=== PATIENT | male | born 1940 | race Caucasian/White ===

== ENCOUNTER 2021-09-21 16:35 | Inpatient (IN) | payer MEDICARE, OTHER ==
[~2021-09-21 16:35] MED LIST: Iopamidol 370 76% 100 ML VIAL ONE
[2021-09-21 17:32] LABS: #Eosinphils 0.4 thou/uL (0.0-0.7); #Lymphocytes 2.8 thou/uL (1.20-3.40); #Monocytes 0.7 thou/uL (0.11-0.59); #Neutrophils 4.7 thou/uL (1.40-6.50); %Basophils 0.5 % (0.0-1.0); %Eosinophils 4.7 % (0.0-10.0); %Lymphocytes 32.5 % (21.0-51.0); %Monocytes 8.4 % (0.0-10.0); %Neutrophils 53.8 % (42.0-75.0); Hemoglobin 13.4 g/dL (14.0-18.0); Mean Corpuscular HGB CONC 33.3 g/dL (32.0-36.0); Mean Corpuscular Hemoglobin 32.5 pg (27.0-31.0); Mean Corpuscular Volume 97.5 fL (78.0-98.0); Mean Platelet Volume 9.9 fL (7.4-10.4); Platelet Count 135 thou/uL (130-400); RBC Distribution Width 11.3 % (11.5-14.5); Red Blood Cell (RBC) Count 4.13 mill/uL (4.70-6.10); White Blood Cell (WBC) Count 8.6 thou/uL (4.8-10.8)
[2021-09-21 17:55] LABS: ALT (SGPT) 10 U/L (8-55); AST (SGOT) 14 U/L (5-34); Albumin 3.6 g/dL (3.4-4.8); Alkaline Phosphatase 174 U/L (40-110); Anion Gap 13 mmol/L (10-20); BUN (Urea Nitrogen) 16 mg/dL (8.4-25.7); Bilirubin, Total 0.6 mg/dL (0.2-1.2); Calc. Creatinine Clearance 0 mL/min (70-130); Calcium 9.5 mg/dL (7.8-10.44); Carbon Dioxide 27 mmol/L (23-31); Chloride 106 mmol/L (98-107); Estimated GFR 73; Globulin 3.6 g/dL (2.4-3.5); Glucose 185 mg/dL (83-110); Potassium 5.2 mmol/L (3.5-5.1); Protein, Total 7.2 g/dL (5.8-8.1); Sodium 141 mmol/L (136-145)
[2021-09-21 18:51] LABS: Bilirubin Negative (Negative); Blood, Urine Large (Negative); Glucose, Urine (Dipstick) 100 mg/dL (Negative); Ketone, Urine Trace mg/dL (Negative); Leukocyte Trace (Negative); Nitrite Positive (Negative); Protein, Urine (Dipstick) > or equal to 300 mg/dL (Neg-Trace); pH, Urine 5.5 (5.0-9.0)
[2021-09-21 18:52] LABS: Clarity Cloudy (Clear); Specific Gravity, Urine 1.021 (1.002-1.036)
[2021-09-21 18:54] LABS: RBC/HPF Greater than 50 HPF (0-3)
[2021-09-21 18:55] LABS: Bacteria/HPF 4+ HPF (None Seen); Renal Epithelial 0-3 HPF (None Seen); Squamous Epithelial 0-3 HPF (0-3); WBC/HPF 21-50 HPF (0-3)
[2021-09-21] MEDS ORDERED: cefTRIAXone\\ROCEPHIN 2 GM VIAL ONE (20:09)
[2021-09-21] MEDS ORDERED: VANCOMYCIN 2 GRAM/500 ML BAG 2 GM in Premix Bag 1 BAG IVPB SCH (20:15)
[2021-09-21] MEDS ORDERED: Meropenem 1 GM in Sodium Chloride 0.9% 100 ML IVPB SCH (20:30)
[2021-09-21] MEDS ORDERED: Dutasteride 0.5 MG CAP PO SCH (21:15)
[2021-09-21] MEDS ORDERED: Tamsulosin HCl 0.4 MG CAP PO SCH (21:15)
[2021-09-22] MEDS ORDERED: HYDROcodone/Acetaminophen 5/325 mg Tablet PO PRN (01:02)
[2021-09-22 01:44] VITALS: BMI 26.5
[2021-09-22] MEDS ORDERED: HumaLOG 300 UNITS/3 ML VIAL SC PRN (06:34)
[2021-09-22] MEDS ORDERED: Dextrose 50% Abboject 50 ML SYRINGE SLOW IVP PRN ×2 (06:34→06:54)
[2021-09-22] MEDS ORDERED: Dextrose 5% in Water 1,000 ML IV PRN ×2 (06:34→06:54)
[2021-09-22] MEDS ORDERED: Meropenem 1 GM in Sodium Chloride 0.9% 100 ML IVPB SCH (06:45)
[2021-09-22] MEDS ORDERED: Insulin Regular 300 UNITS/3 ML VIAL SC PRN (06:54)
[2021-09-22 10:24] LABS: Hemoglobin 12.3 g/dL (14.0-18.0)
[2021-09-22 10:35] LABS: Potassium 4.8 mmol/L (3.5-5.1)
[2021-09-22] MEDS ORDERED: Lorazepam 0.5 MG TAB PO ONE (10:50)
[2021-09-22] MEDS: Sodium Chloride 0.9% 1,000 ML IV SCH (11:22)
[2021-09-22] MEDS: Meropenem 1 GM in Sodium Chloride 0.9% 100 ML IVPB SCH ×2 (13:59→20:39)
[2021-09-22] MEDS: HumaLOG 300 UNITS/3 ML VIAL SC PRN ×3 (14:00→20:42)
[2021-09-22 18:05] LABS: Hemoglobin 12.7 g/dL (14.0-18.0)
[2021-09-22] MEDS: Gabapentin 400 MG CAP PO SCH (20:40)
[2021-09-22] MEDS ORDERED: Citalopram 20 MG TAB PO SCH (21:00)
[2021-09-22] MEDS ORDERED: hydrOXYzine 25 MG TAB PO SCH (21:00)
[2021-09-22] MEDS ORDERED: Tamsulosin HCl 0.4 MG CAP PO SCH (21:00)
[2021-09-23] MEDS: Sodium Chloride 0.9% 1,000 ML IV SCH (01:31)
[2021-09-23] MEDS: Meropenem 1 GM in Sodium Chloride 0.9% 100 ML IVPB SCH ×2 (05:11→14:09)
[2021-09-23 05:45] LABS: Anion Gap 12 mmol/L (10-20); BUN (Urea Nitrogen) 13 mg/dL (8.4-25.7); Calc. Creatinine Clearance 96 mL/min (70-130); Calcium 8.6 mg/dL (7.8-10.44); Carbon Dioxide 26 mmol/L (23-31); Chloride 105 mmol/L (98-107); Estimated GFR 88; Glucose 188 mg/dL (83-110); Potassium 5.2 mmol/L (3.5-5.1); Sodium 138 mmol/L (136-145)
[2021-09-23 05:50] LABS: #Eosinphils 0.3 thou/uL (0.0-0.7); #Lymphocytes 2.1 thou/uL (1.20-3.40); #Monocytes 0.6 thou/uL (0.11-0.59); #Neutrophils 3.5 thou/uL (1.40-6.50); %Basophils 0.6 % (0.0-1.0); %Eosinophils 5.2 % (0.0-10.0); %Lymphocytes 31.8 % (21.0-51.0); %Monocytes 9.7 % (0.0-10.0); %Neutrophils 52.8 % (42.0-75.0); Hemoglobin 12.6 g/dL (14.0-18.0); Mean Corpuscular HGB CONC 34.2 g/dL (32.0-36.0); Mean Corpuscular Hemoglobin 33.3 pg (27.0-31.0); Mean Corpuscular Volume 97.3 fL (78.0-98.0); Mean Platelet Volume 10.3 fL (7.4-10.4); Platelet Count 111 thou/uL (130-400); Platelet Morphology Comment Appears Decreased; RBC Distribution Width 11.4 % (11.5-14.5); White Blood Cell (WBC) Count 6.6 thou/uL (4.8-10.8)
[2021-09-23] MEDS ORDERED: cefTRIAXone\\ROCEPHIN 2 GM in Sodium Chloride 0.9% 100 ML IVPB SCH (08:00)
[2021-09-23] MEDS: Gabapentin 400 MG CAP PO SCH (08:07)
[2021-09-23] MEDS ORDERED: Furosemide 20 MG TAB PO SCH (09:00)
[2021-09-23] MEDS ORDERED: Lisinopril 2.5 MG TAB PO SCH (09:00)
[2021-09-23] MEDS ORDERED: Atorvastatin Calcium 40 MG TAB PO SCH (09:00)
[2021-09-23] MEDS ORDERED: Docusate 100 MG CAP PO SCH (09:00)
[2021-09-23 15:43] VITALS: BP 117/61; TEMP 97.7
== END 2021-09-23 17:40 | disposition home or self-care (01) | DRG 690 ==
LOC: ERS 16:35 → 2SW 23:33
PROVIDERS: ADMIT Internal Medicine; ATTEND Nurse Practitioner Acute Care
DX: N30.01 Acute cystitis with hematuria (principal); M62.82 Rhabdomyolysis; Z20.822 Contact with and (suspected) exposure to COVID-19; E11.9 Type 2 diabetes mellitus without complications; I10 Essential (primary) hypertension; I25.10 Atherosclerotic heart disease of native coronary artery without angina pectoris; E87.6 Hypokalemia; N40.0 Benign prostatic hyperplasia without lower urinary tract symptoms; B96.20 Unspecified Escherichia coli [E. coli] as the cause of diseases classified elsewhere; D69.6 Thrombocytopenia, unspecified; Z95.0 Presence of cardiac pacemaker; Z79.01 Long term (current) use of anticoagulants; Z79.82 Long term (current) use of aspirin; Z79.84 Long term (current) use of oral hypoglycemic drugs; Z79.899 Other long term (current) drug therapy; Z95.1 Presence of aortocoronary bypass graft
CPT/HCPCS: 36415; 36416; 51702; 74177; 80048; 80053; 81003; 81015; 82550; 83605; 84132; 85014; 85018; 85025; 87040; 87077; 87086; 87186; 93005; 93010; 96365; 96366; J0696; J1815; J2185; J3370; J3490; J7050; Q9967; U0003; U0005